=== PATIENT | female | born 1935 | race Hispanic/Latino ===

== ENCOUNTER 2020-11-06 15:45 | Inpatient (IN) | payer MEDICARE ==
[~2020-11-06] VITALS: Ht 149.9 cm; Wt 57.2 kg
[2020-11-06] MEDS ORDERED: CEFEPIME 1GM/NS 0.9% 50 ML 50 ML IV STA (16:01)
[2020-11-06] MEDS ORDERED: ASPIRIN 81 MG CHEW TAB PO ONE (16:15)
[2020-11-06] MEDS ORDERED: VANCOMYCIN 1GM/NS 250 ML 250 ML IV ONE (17:00)
[2020-11-06 17:58] LABS: BASOPHILS # (AUTO) 0.1 (0.0-0.1); BASOPHILS % 0.7 % (0.0-1.0); EOSINOPHILS % 0.2 % (0.0-6.0); HEMATOCRIT 40.1 % (34.2-44.1); HEMOGLOBIN 12.2 g/dL (12.0-16.0); LYMPHOCYTES # (AUTO) 1.6 (1.0-3.2); LYMPHOCYTES % 20.1 % (18.0-39.1); MEAN CORPUSCULAR HEMOGLOBIN 26.4 pg (28-32); MEAN CORPUSCULAR HGB CONC 30.4 g/dL (31-35); MEAN CORPUSCULAR VOLUME 86.8 fL (81-99); MONOCYTES # (AUTO) 0.5 (0.2-0.8); MONOCYTES % 5.9 % (4.4-11.3); NEUTROPHILS # (AUTO) 5.9 (2.1-6.9); NEUTROPHILS % 72.6 % (38.7-80.0); PLATELET COUNT 346 x10e3/uL (140-360); RED BLOOD COUNT 4.62 x10e6/uL (3.6-5.1); RED CELL DISTRIBUTION WIDTH 15.7 % (11.7-14.4)
[2020-11-06 18:12] LABS: ALANINE AMINOTRANSFERASE 13 IU/L (0-55); ALBUMIN 4.1 g/dL (3.5-5.0); ALBUMIN/GLOBULIN RATIO 0.9 (0.8-2.0); ALKALINE PHOSPHATASE 86 IU/L (40-150); ANION GAP 20.5 mmol/L (8-16); BLOOD UREA NITROGEN 26 mg/dL (7-26); BUN/CREATININE RATIO 31 (6-25); CALCIUM 9.6 mg/dL (8.4-10.2); CARBON DIOXIDE 22 mmol/L (22-29); CHLORIDE 101 mmol/L (98-107); CREATINE KINASE 19 IU/L (29-168); CREATININE, SERUM 0.83 mg/dL (0.57-1.11); EST GLOMERULAR FILTRATION RATE > 60 ML/MIN (60-); GLUCOSE 147 mg/dL (74-118); POTASSIUM 4.5 mmol/L (3.5-5.1); SODIUM 139 mmol/L (136-145)
[2020-11-06] MEDS ORDERED: SODIUM CHLORIDE 0.9% 1000ML 1,000 ML IV SCH (18:30)
[2020-11-06] MEDS ORDERED: SODIUM CHLORIDE 0.9% 1000ML 1,000 ML ONE (18:44)
[2020-11-06] MEDS: SODIUM CHLORIDE 0.9% 1000ML 1,000 ML IV SCH (18:48)
[2020-11-06] MEDS: FENTANYL CITRATE/PF 100MCG/2 ML INJ IV PRN (19:50)
[2020-11-07] VITALS (23 sets, daily range): BP systolic 108–180; BP diastolic 35–96
[2020-11-07] MEDS: FENTANYL CITRATE/PF 100MCG/2 ML INJ IV PRN (01:10)
[2020-11-07 06:46] LABS: BASOPHILS % 0.6 % (0.0-1.0); EOSINOPHILS % 0.4 % (0.0-6.0); HEMATOCRIT 35.8 % (34.2-44.1); HEMOGLOBIN 10.8 g/dL (12.0-16.0); LYMPHOCYTES # (AUTO) 1.6 (1.0-3.2); LYMPHOCYTES % 22.5 % (18.0-39.1); MEAN CORPUSCULAR HEMOGLOBIN 26.2 pg (28-32); MEAN CORPUSCULAR HGB CONC 30.2 g/dL (31-35); MEAN CORPUSCULAR VOLUME 86.7 fL (81-99); MONOCYTES # (AUTO) 0.6 (0.2-0.8); MONOCYTES % 7.8 % (4.4-11.3); NEUTROPHILS # (AUTO) 4.8 (2.1-6.9); NEUTROPHILS % 68.1 % (38.7-80.0); PLATELET COUNT 286 x10e3/uL (140-360); RED BLOOD COUNT 4.13 x10e6/uL (3.6-5.1); RED CELL DISTRIBUTION WIDTH 15.6 % (11.7-14.4)
[2020-11-07 06:56] LABS: INR 1.01; PROTHROMBIN TIME 13.9 seconds (11.9-14.5)
[2020-11-07 06:57] LABS: PARTIAL THROMBOPLASTIN TIME 28.2 seconds (23.8-35.5)
[2020-11-07 07:08] LABS: ALANINE AMINOTRANSFERASE 10 IU/L (0-55); ALBUMIN 3.4 g/dL (3.5-5.0); ALBUMIN/GLOBULIN RATIO 0.9 (0.8-2.0); ALKALINE PHOSPHATASE 71 IU/L (40-150); ANION GAP 19.7 mmol/L (8-16); BLOOD UREA NITROGEN 23 mg/dL (7-26); BUN/CREATININE RATIO 34 (6-25); CALCIUM 8.8 mg/dL (8.4-10.2); CARBON DIOXIDE 20 mmol/L (22-29); CHLORIDE 105 mmol/L (98-107); CREATININE, SERUM 0.67 mg/dL (0.57-1.11); EST GLOMERULAR FILTRATION RATE > 60 ML/MIN (60-); GLUCOSE 114 mg/dL (74-118); POTASSIUM 4.7 mmol/L (3.5-5.1); SODIUM 140 mmol/L (136-145)
[2020-11-07 07:43] LABS: THYROID STIMULATING HORMONE 0.901 uIU/mL (0.350-4.940)
[2020-11-07] MEDS: ASPIRIN 81 MG CHEW TAB PO SCH ×2 (08:00→08:36)
[2020-11-07 08:46] LABS: FERRITIN 24.8 ng/mL (4.63-204.00)
[2020-11-07] MEDS: NEOMYCIN/POLYMYXIN/BACITRACIN 15 GM TUBE TOP SCH (10:20)
[2020-11-07] MEDS ORDERED: MIRTAZAPINE15 MG PO (13:28)
[2020-11-07] MEDS ORDERED: HALOPERIDOL1 MG PO (13:28)
[2020-11-07] MEDS ORDERED: NAMENDA5 MG PO (13:28)
[2020-11-07] MEDS ORDERED: SERTRALINE HCL100 MG PO (13:28)
[2020-11-07] MEDS ORDERED: DOXYCYCLINE HY100 MG PO (13:35)
[2020-11-07] MEDS ORDERED: LIPITOR20 MG PO (13:35)
[2020-11-07] MEDS ORDERED: JARDIANCE25 MG PO (13:35)
[2020-11-07] MEDS ORDERED: SODIUM CHLORIDE 0.9% 1000ML 1,000 ML ONE (14:17)
[2020-11-07] MEDS ORDERED: FENTANYL CITRATE/PF 100MCG/2 ML INJ ONE (14:17)
[2020-11-07] MEDS ORDERED: LIDOCAINE HCL 2% LOCAL 20 ML VIAL ONE (14:17)
[2020-11-07] MEDS ORDERED: MIDAZOLAM HCL 2 MG/2 ML VIAL ONE (14:17)
[2020-11-07] MEDS ORDERED: HEPARIN SOD/SOD CHLORIDE 2,000 ML ONE (14:17)
[2020-11-07] MEDS ORDERED: IOPAMIDOL 300MG/ML 100 ML INFUS..BTL IV ONE (14:17)
[2020-11-07] MEDS ORDERED: CLOPIDOGREL BISULFATE 75 MG TAB ONE (15:40)
[2020-11-07] MEDS ORDERED: ASPIRIN 325 MG TAB ONE (15:40)
[2020-11-07] MEDS ORDERED: DEXTROSE 50% SYRINGE 50 ML IV PRN (16:30)
[2020-11-07] MEDS: INSULIN LISPRO 100 UNIT/1 ML 3ML VIAL SQ SCH ×2 (16:30→21:00)
[2020-11-07] MEDS: SODIUM CHLORIDE 0.9% 1000ML 1,000 ML IV SCH (19:30)
[2020-11-07] MEDS ORDERED: MEMANTINE 10 MG TAB PO SCH (21:00)
[2020-11-07] MEDS: ATORVASTATIN 40 MG TAB PO SCH (21:26)
[2020-11-07] MEDS: HALOPERIDOL 1 MG TAB PO SCH (21:26)
[2020-11-07] MEDS: SERTRALINE HCL 100 MG TAB PO SCH (21:26)
[2020-11-07] MEDS: MIRTAZAPINE 15 MG TAB PO SCH (21:26)
[2020-11-08] VITALS (8 sets, daily range): BP systolic 125–151; BP diastolic 53–64
[2020-11-08] MEDS: INSULIN LISPRO 100 UNIT/1 ML 3ML VIAL SQ SCH ×4 (07:30→21:00)
[2020-11-08] MEDS ORDERED: ATORVASTATIN 20 MG TAB PO SCH (09:00)
[2020-11-08] MEDS: ASPIRIN 81 MG CHEW TAB PO SCH (09:28)
[2020-11-08] MEDS: CLOPIDOGREL BISULFATE 75 MG TAB PO SCH (09:28)
[2020-11-08] MEDS: NEOMYCIN/POLYMYXIN/BACITRACIN 15 GM TUBE TOP SCH (10:00)
[2020-11-08] MEDS: ACETAMINOPHEN 325 MG TAB PO PRN ×2 (15:30→21:24)
[2020-11-08] MEDS: SODIUM CHLORIDE 0.9% 1000ML 1,000 ML IV SCH (15:35)
[2020-11-08] MEDS: ATORVASTATIN 40 MG TAB PO SCH (21:23)
[2020-11-08] MEDS: SERTRALINE HCL 100 MG TAB PO SCH (21:23)
[2020-11-08] MEDS: MIRTAZAPINE 15 MG TAB PO SCH (21:23)
[2020-11-08] MEDS: HALOPERIDOL 1 MG TAB PO SCH (21:23)
[2020-11-08] MEDS: MEMANTINE 10 MG TAB PO SCH (21:23)
[2020-11-09] VITALS (8 sets, daily range): BP systolic 119–164; BP diastolic 42–64
[2020-11-09] MEDS: SODIUM CHLORIDE 0.9% 1000ML 1,000 ML IV SCH (06:46)
[2020-11-09] MEDS: INSULIN LISPRO 100 UNIT/1 ML 3ML VIAL SQ SCH ×4 (07:30→20:50)
[2020-11-09] MEDS: ASPIRIN 81 MG CHEW TAB PO SCH (09:00)
[2020-11-09] MEDS: MEMANTINE 10 MG TAB PO SCH ×2 (09:00→20:50)
[2020-11-09] MEDS: SITAGLIPTIN 100 MG TAB PO SCH (09:00)
[2020-11-09] MEDS: NEOMYCIN/POLYMYXIN/BACITRACIN 15 GM TUBE TOP SCH (09:00)
[2020-11-09] MEDS: CLOPIDOGREL BISULFATE 75 MG TAB PO SCH (09:00)
[2020-11-09] MEDS: JARDIANCE 25 MG PO SCH (09:00)
[2020-11-09] MEDS: ACETAMINOPHEN 325 MG TAB PO PRN ×2 (16:45→23:59)
[2020-11-09] MEDS: MIRTAZAPINE 15 MG TAB PO SCH (20:50)
[2020-11-09] MEDS: HALOPERIDOL 1 MG TAB PO SCH (20:50)
[2020-11-09] MEDS: SERTRALINE HCL 100 MG TAB PO SCH (20:50)
[2020-11-09] MEDS: ATORVASTATIN 40 MG TAB PO SCH (20:50)
[2020-11-10] VITALS: BP 176/70
[2020-11-10 04:00] VITALS: BP 164/64
[2020-11-10] MEDS: SODIUM CHLORIDE 0.9% 1000ML 1,000 ML IV SCH (05:55)
[2020-11-10] MEDS: INSULIN LISPRO 100 UNIT/1 ML 3ML VIAL SQ SCH ×3 (07:30→15:56)
[2020-11-10 08:00] VITALS: BP 166/68
[2020-11-10 08:01] VITALS: BP 166/68
[2020-11-10] MEDS: JARDIANCE 25 MG PO SCH (08:28)
[2020-11-10] MEDS: MEMANTINE 10 MG TAB PO SCH (08:28)
[2020-11-10] MEDS: CLOPIDOGREL BISULFATE 75 MG TAB PO SCH (08:28)
[2020-11-10] MEDS: ASPIRIN 81 MG CHEW TAB PO SCH (08:28)
[2020-11-10] MEDS: NEOMYCIN/POLYMYXIN/BACITRACIN 15 GM TUBE TOP SCH (08:28)
[2020-11-10] MEDS: SITAGLIPTIN 100 MG TAB PO SCH (08:28)
[2020-11-10] MEDS ORDERED: LOSARTAN POTASSIUM 100 MG TAB PO SCH (09:00)
[2020-11-10] MEDS ORDERED: LACTULOSE SYRUP 20 GM/30 ML UDC PO ONE (09:00)
[2020-11-10] MEDS: ACETAMINOPHEN 325 MG TAB PO PRN (11:37)
[2020-11-10 12:08] VITALS: BP 158/60
[2020-11-10] MEDS ORDERED: BISACODYL 10 MG SUPP PR ONE ×2 (14:15→15:30)
[2020-11-10 16:10] VITALS: BP 151/58
== END 2020-11-10 20:40 | disposition home health service (06) | DRG 254 ==
LOC: ER 15:50 → ERHOLD 19:43 → MED/SURG3 23:48
PROVIDERS: ADMIT Internal Medicine; ATTEND Internal Medicine
PROC: 047P3D1 Dilation of Right Anterior Tibial Artery with Intraluminal Device, using Drug-Coated Balloon, Percutaneous Approach (ICD-10-PCS; principal; 2020-11-07)
PROC: B41D1ZZ Fluoroscopy of Aorta and Bilateral Lower Extremity Arteries using Low Osmolar Contrast (ICD-10-PCS; 2020-11-07)
DX: E11.52 Type 2 diabetes mellitus with diabetic peripheral angiopathy with gangrene (principal); E11.621 Type 2 diabetes mellitus with foot ulcer; I10 Essential (primary) hypertension; E78.5 Hyperlipidemia, unspecified; F03.90 Unspecified dementia, unspecified severity, without behavioral disturbance, psychotic disturbance, mood disturbance, and anxiety; I99.8 Other disorder of circulatory system; Z74.09 Other reduced mobility; E11.628 Type 2 diabetes mellitus with other skin complications; E11.65 Type 2 diabetes mellitus with hyperglycemia; L03.031 Cellulitis of right toe; Z79.899 Other long term (current) drug therapy; Z20.822 Contact with and (suspected) exposure to COVID-19
CPT/HCPCS: 36247; 36415; 37228; 74018; 75630; 80053; 80061; 82550; 82553; 82728; 82948; 83036; 83540; 83605; 83880; 84443; 84466; 84484; 85025; 85610; 85730; 87040; 93005; 99152; 99153; 99284; C1766; C1769; C1887; J0692; J2001; J2250; J3010; J3370; J7030; Q9967; U0002

== ENCOUNTER 2020-12-02 17:15 | Emergency (ER) | payer MEDICARE ==
[~2020-12-02] VITALS: Ht 149.9 cm; Wt 57.2 kg
[~2020-12-02 17:15] MED LIST: DOXYCYCLINE HY100 MG PO; HALOPERIDOL1 MG PO; JARDIANCE25 MG PO; LIPITOR20 MG PO; MIRTAZAPINE15 MG PO; NAMENDA5 MG PO; SERTRALINE HCL100 MG PO
[2020-12-02 18:27] LABS: BASOPHILS # (AUTO) 0.1 (0.0-0.1); BASOPHILS % 0.9 % (0.0-1.0); EOSINOPHILS # (AUTO) 0.1 (0.0-0.4); EOSINOPHILS % 1.8 % (0.0-6.0); HEMATOCRIT 33.5 % (34.2-44.1); HEMOGLOBIN 10.3 g/dL (12.0-16.0); LYMPHOCYTES # (AUTO) 1.8 (1.0-3.2); LYMPHOCYTES % 22.3 % (18.0-39.1); MEAN CORPUSCULAR HEMOGLOBIN 26.8 pg (28-32); MEAN CORPUSCULAR HGB CONC 30.7 g/dL (31-35); MEAN CORPUSCULAR VOLUME 87.2 fL (81-99); MONOCYTES # (AUTO) 0.7 (0.2-0.8); MONOCYTES % 8.2 % (4.4-11.3); NEUTROPHILS # (AUTO) 5.3 (2.1-6.9); NEUTROPHILS % 66.5 % (38.7-80.0); PLATELET COUNT 296 x10e3/uL (140-360); RED BLOOD COUNT 3.84 x10e6/uL (3.6-5.1); RED CELL DISTRIBUTION WIDTH 15.1 % (11.7-14.4)
[2020-12-02 18:44] LABS: ALANINE AMINOTRANSFERASE 15 IU/L (0-55); ALBUMIN 3.7 g/dL (3.5-5.0); ALBUMIN/GLOBULIN RATIO 0.9 (0.8-2.0); ALKALINE PHOSPHATASE 105 IU/L (40-150); ANION GAP 15.2 mmol/L (8-16); BLOOD UREA NITROGEN 22 mg/dL (7-26); BUN/CREATININE RATIO 29 (6-25); CALCIUM 9.1 mg/dL (8.4-10.2); CARBON DIOXIDE 22 mmol/L (22-29); CHLORIDE 106 mmol/L (98-107); CREATINE KINASE 18 IU/L (29-168); CREATININE, SERUM 0.77 mg/dL (0.57-1.11); EST GLOMERULAR FILTRATION RATE > 60 ML/MIN (60-); GLUCOSE 233 mg/dL (74-118); POTASSIUM 4.2 mmol/L (3.5-5.1); SODIUM 139 mmol/L (136-145)
[2020-12-02 21:07] VITALS: BP 133/61
== END 2020-12-02 21:15 | disposition home or self-care (01) ==
LOC: ER 17:21
DX: R23.3 Spontaneous ecchymoses (principal); M79.605 Pain in left leg; M79.604 Pain in right leg; Z79.01 Long term (current) use of anticoagulants; I10 Essential (primary) hypertension; E11.65 Type 2 diabetes mellitus with hyperglycemia; E78.5 Hyperlipidemia, unspecified; I25.10 Atherosclerotic heart disease of native coronary artery without angina pectoris; I25.2 Old myocardial infarction
CPT/HCPCS: 36415; 80053; 82550; 82553; 83605; 84484; 85025; 87040; 93926; 93971; 99283

== ENCOUNTER 2021-02-10 13:00 | Emergency (ER) | payer MEDICARE ==
[~2021-02-10] VITALS: Ht 149.9 cm; Wt 57.2 kg
[2021-02-10] MEDS ORDERED: CLEOCIN HCL300 MG PO (13:33)
== END 2021-02-10 14:50 | disposition home or self-care (01) ==
LOC: ER 14:39
DX: H00.015 Hordeolum externum left lower eyelid (principal); R23.3 Spontaneous ecchymoses; I10 Essential (primary) hypertension; E11.9 Type 2 diabetes mellitus without complications; E78.5 Hyperlipidemia, unspecified; I25.10 Atherosclerotic heart disease of native coronary artery without angina pectoris; I25.2 Old myocardial infarction
CPT/HCPCS: 99282

== ENCOUNTER 2021-04-30 14:35 | Inpatient (IN) | payer MEDICARE ==
[~2021-04-30] VITALS: Ht 144.8 cm; Wt 57.2 kg
[~2021-04-30 14:35] MED LIST changes: +CLEOCIN HCL300 MG PO
[2021-04-30 15:24] LABS: BASOPHILS # (AUTO) 0.1 (0.0-0.1); BASOPHILS % 0.7 % (0.0-1.0); EOSINOPHILS # (AUTO) 0.1 (0.0-0.4); EOSINOPHILS % 1.3 % (0.0-6.0); HEMOGLOBIN 10.1 g/dL (12.0-16.0); LYMPHOCYTES # (AUTO) 1.6 (1.0-3.2); LYMPHOCYTES % 18.2 % (18.0-39.1); MEAN CORPUSCULAR HEMOGLOBIN 24.3 pg (28-32); MEAN CORPUSCULAR HGB CONC 29.7 g/dL (31-35); MEAN CORPUSCULAR VOLUME 81.9 fL (81-99); MONOCYTES # (AUTO) 0.8 (0.2-0.8); NEUTROPHILS # (AUTO) 6.1 (2.1-6.9); NEUTROPHILS % 70.3 % (38.7-80.0); PLATELET COUNT 311 x10e3/uL (140-360); RED BLOOD COUNT 4.15 x10e6/uL (3.6-5.1); RED CELL DISTRIBUTION WIDTH 15.9 % (11.7-14.4)
[2021-04-30 15:48] LABS: ALBUMIN 3.4 g/dL (3.5-5.0); ALBUMIN/GLOBULIN RATIO 0.9 (0.8-2.0); ANION GAP 14.2 mmol/L (8-16); CALCIUM 8.7 mg/dL (8.4-10.2); CREATININE, SERUM 0.73 mg/dL (0.57-1.11); POTASSIUM 4.2 mmol/L (3.5-5.1)
[2021-04-30 22:00] VITALS: BP_SYST 147; BP_DIAS 28; BP_DIAS 58
[2021-05-01] VITALS (7 sets, daily range): BP systolic 119–189; BP diastolic 46–78
[2021-05-01] MEDS ORDERED: ONDANSETRON HCL INJ 2MG/ML 2ML 2 MG/ML VIAL IV PRN (01:00)
[2021-05-01] MEDS ORDERED: LIDOCAINE 4% PATCH TP PRN (01:00)
[2021-05-01] MEDS ORDERED: ALBUTEROL/IPRATROPIUM 3 ML NEB NEB PRN (01:00)
[2021-05-01] MEDS ORDERED: HYDROCODONE/APAP 5MG-325MG TAB PO PRN (01:00)
[2021-05-01] MEDS ORDERED: DEXTROSE 50% SYRINGE 50 ML IV PRN ×2 (01:00)
[2021-05-01] MEDS ORDERED: MELATONIN 5 MG TABLET PO PRN (01:00)
[2021-05-01] MEDS ORDERED: BENZONATATE 100 MG CAP PO PRN (01:00)
[2021-05-01] MEDS ORDERED: DOCUSATE SODIUM 100 MG CAP PO PRN (01:00)
[2021-05-01] MEDS ORDERED: POTASSIUM CHLORIDE 20 MEQ TAB CR PO PRN (01:00)
[2021-05-01] MEDS ORDERED: ACETAMINOPHEN 325 MG TAB PO PRN (01:00)
[2021-05-01] MEDS ORDERED: DIPHENHYDRAMINE HCL 25 MG CAP PO PRN (01:00)
[2021-05-01 01:28] LABS: CREATINE KINASE MB 0.7 ng/mL (0-5.0)
[2021-05-01 05:02] LABS: BASOPHILS # (AUTO) 0.1 (0.0-0.1); BASOPHILS % 0.8 % (0.0-1.0); EOSINOPHILS # (AUTO) 0.2 (0.0-0.4); EOSINOPHILS % 2.4 % (0.0-6.0); HEMATOCRIT 31.3 % (34.2-44.1); HEMOGLOBIN 9.6 g/dL (12.0-16.0); LYMPHOCYTES # (AUTO) 1.5 (1.0-3.2); LYMPHOCYTES % 24.2 % (18.0-39.1); MEAN CORPUSCULAR HEMOGLOBIN 24.9 pg (28-32); MEAN CORPUSCULAR HGB CONC 30.7 g/dL (31-35); MEAN CORPUSCULAR VOLUME 81.3 fL (81-99); MONOCYTES # (AUTO) 0.6 (0.2-0.8); MONOCYTES % 9.5 % (4.4-11.3); NEUTROPHILS # (AUTO) 3.9 (2.1-6.9); NEUTROPHILS % 62.8 % (38.7-80.0); PLATELET COUNT 260 x10e3/uL (140-360); RED BLOOD COUNT 3.85 x10e6/uL (3.6-5.1); RED CELL DISTRIBUTION WIDTH 15.9 % (11.7-14.4)
[2021-05-01] MEDS ORDERED: CLOPIDOGREL75 MG PO (05:11)
[2021-05-01] MEDS ORDERED: JANUVIA100 MG PO (05:11)
[2021-05-01 05:29] LABS: ANION GAP 13.2 mmol/L (8-16); CALCIUM 8.6 mg/dL (8.4-10.2); CREATININE, SERUM 0.6 mg/dL (0.57-1.11); POTASSIUM 4.2 mmol/L (3.5-5.1)
[2021-05-01] MEDS: PANTOPRAZOLE SOD 40 MG TABEC PO SCH (08:50)
[2021-05-01] MEDS: ASPIRIN 81 MG ENTERIC COATED PO SCH (08:51)
[2021-05-01] MEDS: HYDRALAZINE HCL 20 MG/ML VIAL IV PRN (08:51)
[2021-05-01 10:22] LABS: CREATINE KINASE MB 0.6 ng/mL (0-5.0)
[2021-05-01] MEDS: CLOPIDOGREL BISULFATE 75 MG TAB PO SCH (12:31)
[2021-05-01 14:43] LABS: CREATINE KINASE MB 0.6 ng/mL (0-5.0)
[2021-05-01] MEDS: ENOXAPARIN SOD INJ 40 MG/0.4 ML SYR SC SCH (17:07)
[2021-05-01] MEDS: INSULIN LISPRO 100 UNIT/1 ML 3ML VIAL SQ SCH ×2 (17:08→21:50)
[2021-05-01] MEDS: ATORVASTATIN 20 MG TAB PO SCH (21:55)
[2021-05-01] MEDS: HALOPERIDOL 1 MG TAB PO SCH (21:55)
[2021-05-01] MEDS: MEMANTINE 10 MG TAB PO SCH (21:55)
[2021-05-01] MEDS: SERTRALINE HCL 100 MG TAB PO SCH (21:55)
[2021-05-02] VITALS (9 sets, daily range): BP systolic 128–180; BP diastolic 41–81
[2021-05-02 05:03] LABS: BASOPHILS % 0.6 % (0.0-1.0); EOSINOPHILS # (AUTO) 0.1 (0.0-0.4); HEMATOCRIT 33.2 % (34.2-44.1); LYMPHOCYTES # (AUTO) 1.7 (1.0-3.2); LYMPHOCYTES % 26.3 % (18.0-39.1); MEAN CORPUSCULAR HEMOGLOBIN 24.4 pg (28-32); MEAN CORPUSCULAR HGB CONC 30.1 g/dL (31-35); MEAN CORPUSCULAR VOLUME 81.2 fL (81-99); MONOCYTES # (AUTO) 0.6 (0.2-0.8); MONOCYTES % 9.2 % (4.4-11.3); NEUTROPHILS # (AUTO) 3.9 (2.1-6.9); NEUTROPHILS % 61.6 % (38.7-80.0); PLATELET COUNT 272 x10e3/uL (140-360); RED BLOOD COUNT 4.09 x10e6/uL (3.6-5.1); RED CELL DISTRIBUTION WIDTH 16.2 % (11.7-14.4)
[2021-05-02 05:32] LABS: ANION GAP 12.9 mmol/L (8-16); CALCIUM 8.6 mg/dL (8.4-10.2); CHOL/HDL RATIO 3.7 (3.0-3.6); CREATININE, SERUM 0.77 mg/dL (0.57-1.11); MAGNESIUM 1.9 MG/DL (1.3-2.1); PHOSPHORUS 3.4 MG/DL (2.3-4.7); POTASSIUM 3.9 mmol/L (3.5-5.1)
[2021-05-02 05:52] LABS: THYROID STIMULATING HORMONE 1.433 uIU/mL (0.350-4.940)
[2021-05-02] MEDS ORDERED: METOPROLOL SUCCINATE 25 MG TAB XL PO SCH (09:00)
[2021-05-02] MEDS: ASPIRIN 81 MG ENTERIC COATED PO SCH (09:32)
[2021-05-02] MEDS: CLOPIDOGREL BISULFATE 75 MG TAB PO SCH (09:32)
[2021-05-02] MEDS: PANTOPRAZOLE SOD 40 MG TABEC PO SCH (09:32)
[2021-05-02] MEDS: HYDRALAZINE HCL 20 MG/ML VIAL IV PRN (09:32)
[2021-05-02] MEDS: INSULIN LISPRO 100 UNIT/1 ML 3ML VIAL SQ SCH ×4 (09:45→21:22)
[2021-05-02] MEDS: ENOXAPARIN SOD INJ 40 MG/0.4 ML SYR SC SCH (16:48)
[2021-05-02] MEDS: HALOPERIDOL 1 MG TAB PO SCH (21:20)
[2021-05-02] MEDS: ATORVASTATIN 20 MG TAB PO SCH (21:20)
[2021-05-02] MEDS: MEMANTINE 10 MG TAB PO SCH (21:21)
[2021-05-02] MEDS: AMLODIPINE BESYLATE 5 MG TAB PO SCH (21:21)
[2021-05-02] MEDS: SERTRALINE HCL 100 MG TAB PO SCH (21:21)
[2021-05-03] VITALS (8 sets, daily range): BP systolic 119–155; BP diastolic 45–87
[2021-05-03] MEDS: ASPIRIN 81 MG ENTERIC COATED PO SCH (09:33)
[2021-05-03] MEDS: CLOPIDOGREL BISULFATE 75 MG TAB PO SCH (09:33)
[2021-05-03] MEDS: INSULIN LISPRO 100 UNIT/1 ML 3ML VIAL SQ SCH ×4 (09:33→20:21)
[2021-05-03] MEDS: PANTOPRAZOLE SOD 40 MG TABEC PO SCH (09:33)
[2021-05-03] MEDS: METOPROLOL SUCCINATE 25 MG TAB XL PO SCH (09:34)
[2021-05-03] MEDS: ENOXAPARIN SOD INJ 40 MG/0.4 ML SYR SC SCH (17:05)
[2021-05-03] MEDS: HALOPERIDOL 1 MG TAB PO SCH (21:03)
[2021-05-03] MEDS: ATORVASTATIN 20 MG TAB PO SCH (21:03)
[2021-05-03] MEDS: SERTRALINE HCL 100 MG TAB PO SCH (21:03)
[2021-05-03] MEDS: AMLODIPINE BESYLATE 5 MG TAB PO SCH (21:03)
[2021-05-03] MEDS: MEMANTINE 10 MG TAB PO SCH (21:03)
[2021-05-04] VITALS: BP 165/51
[2021-05-04 04:00] VITALS: BP 167/69
[2021-05-04] MEDS: INSULIN LISPRO 100 UNIT/1 ML 3ML VIAL SQ SCH ×3 (07:51→15:48)
[2021-05-04 07:56] VITALS: BP 140/72
[2021-05-04] MEDS: METOPROLOL SUCCINATE 25 MG TAB XL PO SCH (08:01)
[2021-05-04] MEDS: PANTOPRAZOLE SOD 40 MG TABEC PO SCH (08:01)
[2021-05-04] MEDS: CLOPIDOGREL BISULFATE 75 MG TAB PO SCH (08:01)
[2021-05-04] MEDS: ASPIRIN 81 MG ENTERIC COATED PO SCH (08:01)
[2021-05-04 11:29] VITALS: BP 150/59
[2021-05-04] MEDS ORDERED: ONDANSETRON HCL 4 MG ORAL DISINTEGRATING TAB PO PRN (13:15)
[2021-05-04 15:22] VITALS: BP 150/59
[2021-05-04 15:40] VITALS: BP 120/59
[2021-05-04] MEDS ORDERED: METOPROLOL SUCC25 MG PO (16:41)
[2021-05-05] MEDS ORDERED: BALSAM PERU/CASTOR OIL 60 GM OINT...G. TP SCH (09:00)
== END 2021-05-04 17:40 | disposition home or self-care (01) | DRG 313 ==
LOC: ER 14:52 → ERHOLD 19:06 → MED/SURG 22:56 → OBSVTOIN 05-02 12:11
PROVIDERS: ADMIT Internal Medicine; ATTEND Internal Medicine
DX: R07.89 Other chest pain (principal); I27.0 Primary pulmonary hypertension; G30.9 Alzheimer's disease, unspecified; F02.80 Dementia in other diseases classified elsewhere, unspecified severity, without behavioral disturbance, psychotic disturbance, mood disturbance, and anxiety; Z74.01 Bed confinement status; K44.9 Diaphragmatic hernia without obstruction or gangrene; E11.51 Type 2 diabetes mellitus with diabetic peripheral angiopathy without gangrene; Z79.899 Other long term (current) drug therapy; I08.3 Combined rheumatic disorders of mitral, aortic and tricuspid valves; D64.9 Anemia, unspecified; I65.23 Occlusion and stenosis of bilateral carotid arteries; Z20.822 Contact with and (suspected) exposure to COVID-19
CPT/HCPCS: 36415; 71045; 74230; 80048; 80053; 80061; 82550; 82553; 82948; 83036; 83735; 83880; 84100; 84443; 84484; 85025; 93005; 93306; 93880; 96372; 99251; 99284; G0378; J0360; J1650; U0002

== ENCOUNTER 2021-08-12 13:22 | Inpatient (IN) | payer MEDICARE ==
[~2021-08-12] VITALS: Ht 139.7 cm; Wt 57.2 kg
[~2021-08-12 13:22] MED LIST changes: +CLOPIDOGREL75 MG PO; +JANUVIA100 MG PO; +METOPROLOL SUCC25 MG PO
[2021-08-12 14:31] LABS: BASOPHILS % 0.4 % (0.0-1.0); EOSINOPHILS # (AUTO) 0.1 (0.0-0.4); EOSINOPHILS % 0.6 % (0.0-6.0); HEMATOCRIT 38.3 % (34.2-44.1); HEMOGLOBIN 11.5 g/dL (12.0-16.0); LYMPHOCYTES # (AUTO) 1.4 (1.0-3.2); LYMPHOCYTES % 14.5 % (18.0-39.1); MEAN CORPUSCULAR HEMOGLOBIN 23.5 pg (28-32); MEAN CORPUSCULAR VOLUME 78.3 fL (81-99); MONOCYTES # (AUTO) 0.5 (0.2-0.8); MONOCYTES % 5.5 % (4.4-11.3); NEUTROPHILS # (AUTO) 7.3 (2.1-6.9); NEUTROPHILS % 78.7 % (38.7-80.0); PLATELET COUNT 236 x10e3/uL (140-360); RED BLOOD COUNT 4.89 x10e6/uL (3.6-5.1); RED CELL DISTRIBUTION WIDTH 16.1 % (11.7-14.4)
[2021-08-12 14:39] LABS: CLARITY,URINE TURBID (CLEAR); COLOR,URINE YELLOW (YELLOW); KETONES,URINE 1+ (NEGATIVE); LEUKOCYTE ESTERASE ,URINE SMALL (NEGATIVE); NITRITE,URINE NEGATIVE (NEGATIVE); PROTEIN,URINE DIPSTICK >=300 (NEGATIVE); URINE UROBILINOGEN 0.2 mg/dL (0.2 - 1)
[2021-08-12 14:49] LABS: BACTERIA,URINE FEW /HPF; EPITHELIAL CELLS,URINE RARE /LPF; WBC,URINE (MAN) 21-50 /HPF (0-5)
[2021-08-12 14:53] LABS: INR 0.88; PROTHROMBIN TIME 12.6 seconds (11.9-14.5)
[2021-08-12 14:54] LABS: PARTIAL THROMBOPLASTIN TIME 20.7 seconds (23.8-35.5)
[2021-08-12 14:55] LABS: ALANINE AMINOTRANSFERASE < 6 IU/L (0-55); ALKALINE PHOSPHATASE 102 IU/L (40-150); BLOOD UREA NITROGEN 20 mg/dL (7-26); BUN/CREATININE RATIO 20 (6-25); CALCIUM 9.8 mg/dL (8.4-10.2); CARBON DIOXIDE 24 mmol/L (22-29); CREATINE KINASE 24 IU/L (29-168); EST GLOMERULAR FILTRATION RATE 53 ML/MIN (60-); GLUCOSE 391 mg/dL (74-118); MAGNESIUM 1.5 MG/DL (1.3-2.1)
[2021-08-12 15:07] LABS: ANION GAP 19.2 mmol/L (8-16); CHLORIDE 103 mmol/L (98-107); POTASSIUM 4.2 mmol/L (3.5-5.1); SODIUM 140 mmol/L (136-145)
[2021-08-12] MEDS: MEROPENEM 1 GM in SODIUM CHLORIDE 0.9% 100 ML IV SCH ×2 (15:49→22:00)
[2021-08-12] MEDS ORDERED: ONDANSETRON HCL INJ 2MG/ML 2ML 2 MG/ML VIAL IV PRN (16:00)
[2021-08-12] MEDS: SODIUM CHLORIDE 0.9% 1000ML 1,000 ML IV SCH (16:00)
[2021-08-12] MEDS ORDERED: DEXTROSE 50% SYRINGE 50 ML IV PRN (16:00)
[2021-08-12] MEDS: INSULIN LISPRO 100 UNIT/1 ML 3ML VIAL SQ SCH ×2 (16:47→21:00)
[2021-08-12] MEDS: QUETIAPINE FUMARATE 25 MG TAB PO SCH (21:00)
[2021-08-12 21:39] VITALS: BP 92/72
[2021-08-12 22:00] VITALS: BP 92/72
[2021-08-13] VITALS (7 sets, daily range): BP systolic 117–182; BP diastolic 58–88
[2021-08-13 04:57] LABS: BASOPHILS % 0.7 % (0.0-1.0); EOSINOPHILS # (AUTO) 0.2 (0.0-0.4); EOSINOPHILS % 3.3 % (0.0-6.0); HEMATOCRIT 33.8 % (34.2-44.1); HEMOGLOBIN 10.1 g/dL (12.0-16.0); LYMPHOCYTES # (AUTO) 1.2 (1.0-3.2); LYMPHOCYTES % 19.9 % (18.0-39.1); MEAN CORPUSCULAR HEMOGLOBIN 23.4 pg (28-32); MEAN CORPUSCULAR HGB CONC 29.9 g/dL (31-35); MEAN CORPUSCULAR VOLUME 78.4 fL (81-99); MONOCYTES # (AUTO) 0.6 (0.2-0.8); MONOCYTES % 9.7 % (4.4-11.3); NEUTROPHILS % 66.1 % (38.7-80.0); PLATELET COUNT 214 x10e3/uL (140-360); RED BLOOD COUNT 4.31 x10e6/uL (3.6-5.1)
[2021-08-13] MEDS: SODIUM CHLORIDE 0.9% 1000ML 1,000 ML IV SCH ×2 (05:20→17:52)
[2021-08-13 05:30] LABS: ALANINE AMINOTRANSFERASE < 6 IU/L (0-55); ALBUMIN 3.3 g/dL (3.5-5.0); ALKALINE PHOSPHATASE 90 IU/L (40-150); ANION GAP 15.5 mmol/L (8-16); BLOOD UREA NITROGEN 16 mg/dL (7-26); BUN/CREATININE RATIO 21 (6-25); CALCIUM 8.6 mg/dL (8.4-10.2); CARBON DIOXIDE 24 mmol/L (22-29); CHLORIDE 108 mmol/L (98-107); CHOL/HDL RATIO 2.7 (3.0-3.6); CHOLESTEROL 141 MD/DL (0-199); CREATININE, SERUM 0.76 mg/dL (0.57-1.11); EST GLOMERULAR FILTRATION RATE 72 ML/MIN (60-); GLUCOSE 173 mg/dL (74-118); HDL CHOLESTEROL 53 MG/DL (40-60); LDL CHOLESTEROL 69 MG/DL (60-130); POTASSIUM 3.5 mmol/L (3.5-5.1); SODIUM 144 mmol/L (136-145); TRIGLYCERIDES 94 MG/DL (0-149)
[2021-08-13] MEDS: MEROPENEM 1 GM in SODIUM CHLORIDE 0.9% 100 ML IV SCH ×3 (05:45→21:05)
[2021-08-13] MEDS ORDERED: MEROPENEM 1 GM VIAL ONE (05:57)
[2021-08-13] MEDS ORDERED: SODIUM CHLORIDE 0.9% 100 ML ONE (06:13)
[2021-08-13 06:51] LABS: MAGNESIUM 1.4 MG/DL (1.3-2.1)
[2021-08-13 07:01] LABS: CREATINE KINASE MB 0.4 ng/mL (0-5.0)
[2021-08-13 07:20] LABS: FERRITIN 16.37 ng/mL (4.63-204.00); THYROID STIMULATING HORMONE 0.703 uIU/mL (0.350-4.940)
[2021-08-13] MEDS: INSULIN LISPRO 100 UNIT/1 ML 3ML VIAL SQ SCH ×4 (07:30→21:00)
[2021-08-13 13:24] LABS: CREATINE KINASE MB 0.5 ng/mL (0-5.0)
[2021-08-13] MEDS ORDERED: ONDANSETRON HCL 4 MG ORAL DISINTEGRATING TAB PO PRN (13:45)
[2021-08-13] MEDS: QUETIAPINE FUMARATE 25 MG TAB PO SCH (21:00)
[2021-08-14] VITALS (10 sets, daily range): BP systolic 158–225; BP diastolic 59–79
[2021-08-14] MEDS: MEROPENEM 1 GM in SODIUM CHLORIDE 0.9% 100 ML IV SCH ×3 (04:56→21:29)
[2021-08-14 05:00] LABS: BASOPHILS # (AUTO) 0.1 (0.0-0.1); BASOPHILS % 0.9 % (0.0-1.0); EOSINOPHILS # (AUTO) 0.3 (0.0-0.4); EOSINOPHILS % 3.8 % (0.0-6.0); HEMATOCRIT 36.7 % (34.2-44.1); HEMOGLOBIN 10.9 g/dL (12.0-16.0); LYMPHOCYTES # (AUTO) 1.8 (1.0-3.2); MEAN CORPUSCULAR HEMOGLOBIN 23.6 pg (28-32); MEAN CORPUSCULAR HGB CONC 29.7 g/dL (31-35); MEAN CORPUSCULAR VOLUME 79.4 fL (81-99); MONOCYTES # (AUTO) 0.6 (0.2-0.8); MONOCYTES % 8.4 % (4.4-11.3); NEUTROPHILS % 59.6 % (38.7-80.0); PLATELET COUNT 204 x10e3/uL (140-360); RED BLOOD COUNT 4.62 x10e6/uL (3.6-5.1); RED CELL DISTRIBUTION WIDTH 16.4 % (11.7-14.4)
[2021-08-14 05:13] LABS: ANION GAP 12.7 mmol/L (8-16); CALCIUM 8.9 mg/dL (8.4-10.2); CREATININE, SERUM 0.68 mg/dL (0.57-1.11); POTASSIUM 3.7 mmol/L (3.5-5.1)
[2021-08-14] MEDS ORDERED: HYDRALAZINE HCL 20 MG/ML VIAL IV PRN (07:00)
[2021-08-14] MEDS: SODIUM CHLORIDE 0.9% 1000ML 1,000 ML IV SCH ×2 (09:00→21:23)
[2021-08-14] MEDS: INSULIN LISPRO 100 UNIT/1 ML 3ML VIAL SQ SCH ×4 (09:14→20:13)
[2021-08-14] MEDS ORDERED: LORAZEPAM 0.5 MG TAB PO ONE (10:30)
[2021-08-14] MEDS: METOPROLOL SUCCINATE 25 MG TAB XL PO SCH (10:37)
[2021-08-14] MEDS: LOSARTAN POTASSIUM 25 MG TAB PO SCH (10:37)
[2021-08-14] MEDS: COLLAGENASE 5 GM TUBE TOP SCH (10:38)
[2021-08-14] MEDS: IRON SUCROSE 100 MG in SODIUM CHLORIDE 0.9% 100 ML 100 ML IV SCH (11:33)
[2021-08-14] MEDS ORDERED: LOPERAMIDE HCL 2 MG CAP PO ONE (12:30)
[2021-08-14] MEDS: HALOPERIDOL 1 MG TAB PO SCH (20:08)
[2021-08-14] MEDS: MIRTAZAPINE 15 MG TAB PO SCH (20:08)
[2021-08-14] MEDS: SERTRALINE HCL 100 MG TAB PO SCH (20:08)
[2021-08-14] MEDS: MEMANTINE 10 MG TAB PO SCH (20:08)
[2021-08-14] MEDS: HYDRALAZINE HCL 20 MG/ML VIAL IV PRN (20:23)
[2021-08-14] MEDS ORDERED: SODIUM CHLORIDE 0.9% 100 ML ONE (21:38)
[2021-08-15] VITALS (8 sets, daily range): BP systolic 118–169; BP diastolic 50–66
[2021-08-15] MEDS: MEROPENEM 1 GM in SODIUM CHLORIDE 0.9% 100 ML IV SCH (04:46)
[2021-08-15 05:03] LABS: BASOPHILS % 0.2 % (0.0-1.0); EOSINOPHILS % 0.1 % (0.0-6.0); HEMATOCRIT 38.3 % (34.2-44.1); HEMOGLOBIN 11.5 g/dL (12.0-16.0); LYMPHOCYTES # (AUTO) 1.2 (1.0-3.2); LYMPHOCYTES % 9.3 % (18.0-39.1); MEAN CORPUSCULAR HEMOGLOBIN 23.4 pg (28-32); MEAN CORPUSCULAR VOLUME 77.8 fL (81-99); MONOCYTES # (AUTO) 1.1 (0.2-0.8); MONOCYTES % 8.3 % (4.4-11.3); NEUTROPHILS # (AUTO) 10.6 (2.1-6.9); NEUTROPHILS % 81.4 % (38.7-80.0); PLATELET COUNT 236 x10e3/uL (140-360); RED BLOOD COUNT 4.92 x10e6/uL (3.6-5.1); RED CELL DISTRIBUTION WIDTH 16.6 % (11.7-14.4)
[2021-08-15 05:27] LABS: ALBUMIN 3.4 g/dL (3.5-5.0); ALBUMIN/GLOBULIN RATIO 0.9 (0.8-2.0); ANION GAP 17.4 mmol/L (8-16); CALCIUM 8.9 mg/dL (8.4-10.2); CREATININE, SERUM 0.95 mg/dL (0.57-1.11); MAGNESIUM 1.4 MG/DL (1.3-2.1); POTASSIUM 3.4 mmol/L (3.5-5.1)
[2021-08-15] MEDS: INSULIN LISPRO 100 UNIT/1 ML 3ML VIAL SQ SCH ×4 (07:30→21:00)
[2021-08-15] MEDS: SITAGLIPTIN 100 MG TAB PO SCH (09:00)
[2021-08-15] MEDS: LOSARTAN POTASSIUM 25 MG TAB PO SCH (09:00)
[2021-08-15] MEDS: COLLAGENASE 5 GM TUBE TOP SCH (09:00)
[2021-08-15] MEDS: CLOPIDOGREL BISULFATE 75 MG TAB PO SCH (09:00)
[2021-08-15] MEDS: METOPROLOL SUCCINATE 25 MG TAB XL PO SCH (09:00)
[2021-08-15] MEDS: ATORVASTATIN 40 MG TAB PO SCH (09:00)
[2021-08-15] MEDS ORDERED: METOPROLOL SUCCINATE 25 MG TAB XL PO SCH (09:00)
[2021-08-15] MEDS ORDERED: POTASSIUM CHLORIDE 20 MEQ TAB CR PO ONE (10:56)
[2021-08-15] MEDS ORDERED: MAGNESIUM SULFATE 2GM/50ML 50 ML IV ONE (11:00)
[2021-08-15] MEDS: AZTREONAM 1 GM/NS 50 ML 50 ML IV SCH ×2 (13:03→22:09)
[2021-08-15] MEDS: IRON SUCROSE 100 MG in SODIUM CHLORIDE 0.9% 100 ML 100 ML IV SCH (14:52)
[2021-08-15] MEDS: ACETAMINOPHEN 325 MG TAB PO PRN (18:51)
[2021-08-15] MEDS: HALOPERIDOL 1 MG TAB PO SCH (21:04)
[2021-08-15] MEDS: MIRTAZAPINE 15 MG TAB PO SCH (21:04)
[2021-08-15] MEDS: SERTRALINE HCL 100 MG TAB PO SCH (21:04)
[2021-08-15] MEDS: MEMANTINE 10 MG TAB PO SCH (21:04)
[2021-08-16] VITALS (8 sets, daily range): BP systolic 128–162; BP diastolic 43–74
[2021-08-16] MEDS: INSULIN LISPRO 100 UNIT/1 ML 3ML VIAL SQ SCH ×4 (07:30→21:00)
[2021-08-16] MEDS: SITAGLIPTIN 100 MG TAB PO SCH (08:38)
[2021-08-16] MEDS: ATORVASTATIN 40 MG TAB PO SCH (08:38)
[2021-08-16] MEDS: LOSARTAN POTASSIUM 25 MG TAB PO SCH (08:38)
[2021-08-16] MEDS: CLOPIDOGREL BISULFATE 75 MG TAB PO SCH (08:38)
[2021-08-16] MEDS: METOPROLOL SUCCINATE 25 MG TAB XL PO SCH (08:39)
[2021-08-16] MEDS: COLLAGENASE 5 GM TUBE TOP SCH (08:39)
[2021-08-16] MEDS ORDERED: METRONIDAZOLE 500MG/NS 100ML 100 ML IV SCH (09:45)
[2021-08-16] MEDS: APIXAB 2.5 MG TABLET PO SCH ×2 (10:27→16:39)
[2021-08-16] MEDS: MEGESTROL ACETATE 40 MG TAB PO SCH ×2 (10:27→16:39)
[2021-08-16] MEDS: CLINDAMYCIN 300MG 50 ML IV SCH ×2 (11:27→16:39)
[2021-08-16] MEDS: ACETAMINOPHEN 325 MG TAB PO PRN (12:44)
[2021-08-16] MEDS: AZTREONAM 1 GM/NS 50 ML 50 ML IV SCH ×2 (12:57→23:50)
[2021-08-16] MEDS: MEMANTINE 10 MG TAB PO SCH (16:39)
[2021-08-16] MEDS ORDERED: QUETIAPINE FUMARATE 25 MG TAB PO SCH (21:00)
[2021-08-16] MEDS ORDERED: ATORVASTATIN 40 MG TAB PO SCH (21:00)
[2021-08-16] MEDS: MIRTAZAPINE 15 MG TAB PO SCH (21:31)
[2021-08-17] VITALS (9 sets, daily range): BP systolic 111–158; BP diastolic 43–69
[2021-08-17] MEDS: CLINDAMYCIN 300MG 50 ML IV SCH ×3 (00:33→17:30)
[2021-08-17] MEDS: MEGESTROL ACETATE 40 MG TAB PO SCH ×2 (08:15→17:30)
[2021-08-17] MEDS: APIXAB 2.5 MG TABLET PO SCH ×2 (08:15→17:30)
[2021-08-17] MEDS: INSULIN LISPRO 100 UNIT/1 ML 3ML VIAL SQ SCH ×5 (08:15→21:00)
[2021-08-17] MEDS: MEMANTINE 10 MG TAB PO SCH ×2 (08:15→17:30)
[2021-08-17] MEDS: LOSARTAN POTASSIUM 25 MG TAB PO SCH (08:15)
[2021-08-17] MEDS: SITAGLIPTIN 100 MG TAB PO SCH (08:15)
[2021-08-17] MEDS ORDERED: METOPROLOL SUCCINATE 25 MG TAB XL PO SCH (09:00)
[2021-08-17] MEDS ORDERED: FUROSEMIDE INJ 10 MG/ML 4 ML VIAL IV ONE (09:45)
[2021-08-17] MEDS ORDERED: POTASSIUM CHLORIDE 20 MEQ TAB CR PO ONE (09:45)
[2021-08-17 09:57] LABS: BASOPHILS % 0.3 % (0.0-1.0); EOSINOPHILS # (AUTO) 0.1 (0.0-0.4); EOSINOPHILS % 0.6 % (0.0-6.0); HEMATOCRIT 34.3 % (34.2-44.1); HEMOGLOBIN 10.6 g/dL (12.0-16.0); LYMPHOCYTES # (AUTO) 0.8 (1.0-3.2); LYMPHOCYTES % 6.3 % (18.0-39.1); MEAN CORPUSCULAR HEMOGLOBIN 23.9 pg (28-32); MEAN CORPUSCULAR HGB CONC 30.9 g/dL (31-35); MEAN CORPUSCULAR VOLUME 77.3 fL (81-99); MONOCYTES # (AUTO) 0.8 (0.2-0.8); MONOCYTES % 6.2 % (4.4-11.3); NEUTROPHILS # (AUTO) 11.3 (2.1-6.9); NEUTROPHILS % 84.9 % (38.7-80.0); PLATELET COUNT 222 x10e3/uL (140-360); RED BLOOD COUNT 4.44 x10e6/uL (3.6-5.1); RED CELL DISTRIBUTION WIDTH 16.9 % (11.7-14.4)
[2021-08-17] MEDS: AZTREONAM 1 GM/NS 50 ML 50 ML IV SCH ×2 (10:10→23:42)
[2021-08-17 10:41] LABS: ANION GAP 13.6 mmol/L (8-16); CALCIUM 8.9 mg/dL (8.4-10.2); CREATININE, SERUM 1.01 mg/dL (0.57-1.11); POTASSIUM 3.6 mmol/L (3.5-5.1)
[2021-08-17] MEDS: COLLAGENASE 5 GM TUBE TOP SCH (16:19)
[2021-08-17] MEDS: QUETIAPINE FUMARATE 25 MG TAB PO SCH (21:57)
[2021-08-17] MEDS: MIRTAZAPINE 15 MG TAB PO SCH (21:57)
[2021-08-18] VITALS (8 sets, daily range): BP systolic 111–190; BP diastolic 44–74
[2021-08-18] MEDS: CLINDAMYCIN 300MG 50 ML IV SCH ×2 (01:12→09:45)
[2021-08-18] MEDS: HYDRALAZINE HCL 20 MG/ML VIAL IV PRN (04:12)
[2021-08-18 05:16] LABS: ANION GAP 15.9 mmol/L (8-16); CREATININE, SERUM 1.15 mg/dL (0.57-1.11); POTASSIUM 3.9 mmol/L (3.5-5.1)
[2021-08-18] MEDS: INSULIN LISPRO 100 UNIT/1 ML 3ML VIAL SQ SCH ×4 (08:00→20:15)
[2021-08-18] MEDS: MEGESTROL ACETATE 40 MG TAB PO SCH ×2 (10:07→17:04)
[2021-08-18] MEDS: POTASSIUM CHLORIDE 20 MEQ TAB CR PO SCH (10:07)
[2021-08-18] MEDS: FUROSEMIDE INJ 10 MG/ML 4 ML VIAL IV SCH (10:07)
[2021-08-18] MEDS: SITAGLIPTIN 100 MG TAB PO SCH (10:07)
[2021-08-18] MEDS: APIXAB 2.5 MG TABLET PO SCH ×2 (10:07→17:04)
[2021-08-18] MEDS: MEMANTINE 10 MG TAB PO SCH ×2 (10:07→17:04)
[2021-08-18] MEDS: AZTREONAM 1 GM/NS 50 ML 50 ML IV SCH ×2 (11:40→23:12)
[2021-08-18] MEDS: GLIPIZIDE 5 MG TAB PO SCH ×2 (11:40→17:03)
[2021-08-18] MEDS: COLLAGENASE 5 GM TUBE TOP SCH (17:03)
[2021-08-18] MEDS: METOPROLOL TARTRATE 50 MG TAB PO SCH (17:04)
[2021-08-18] MEDS: MIRTAZAPINE 15 MG TAB PO SCH (20:15)
[2021-08-18] MEDS: QUETIAPINE FUMARATE 25 MG TAB PO SCH (20:15)
[2021-08-18] MEDS ORDERED: SODIUM CHLORIDE 0.9% 250ML 250 ML ONE (23:11)
[2021-08-19] VITALS (9 sets, daily range): BP systolic 100–158; BP diastolic 29–63
[2021-08-19 05:01] LABS: BASOPHILS % 0.3 % (0.0-1.0); EOSINOPHILS # (AUTO) 0.2 (0.0-0.4); EOSINOPHILS % 2.1 % (0.0-6.0); HEMATOCRIT 35.1 % (34.2-44.1); HEMOGLOBIN 10.5 g/dL (12.0-16.0); LYMPHOCYTES # (AUTO) 1.3 (1.0-3.2); LYMPHOCYTES % 11.6 % (18.0-39.1); MEAN CORPUSCULAR HEMOGLOBIN 23.5 pg (28-32); MEAN CORPUSCULAR HGB CONC 29.9 g/dL (31-35); MEAN CORPUSCULAR VOLUME 78.5 fL (81-99); NEUTROPHILS # (AUTO) 8.4 (2.1-6.9); NEUTROPHILS % 76.5 % (38.7-80.0); PLATELET COUNT 247 x10e3/uL (140-360); RED BLOOD COUNT 4.47 x10e6/uL (3.6-5.1); RED CELL DISTRIBUTION WIDTH 17.5 % (11.7-14.4)
[2021-08-19 05:19] LABS: ANION GAP 16.4 mmol/L (8-16); CALCIUM 9.3 mg/dL (8.4-10.2); CREATININE, SERUM 1.13 mg/dL (0.57-1.11); POTASSIUM 4.4 mmol/L (3.5-5.1)
[2021-08-19] MEDS: INSULIN LISPRO 100 UNIT/1 ML 3ML VIAL SQ SCH ×4 (08:30→21:00)
[2021-08-19] MEDS: FUROSEMIDE INJ 10 MG/ML 4 ML VIAL IV SCH (08:58)
[2021-08-19] MEDS: SITAGLIPTIN 100 MG TAB PO SCH (08:58)
[2021-08-19] MEDS: POTASSIUM CHLORIDE 20 MEQ TAB CR PO SCH (08:58)
[2021-08-19] MEDS: GLIPIZIDE 5 MG TAB PO SCH ×2 (08:58→16:04)
[2021-08-19] MEDS: APIXAB 2.5 MG TABLET PO SCH ×2 (08:58→16:04)
[2021-08-19] MEDS: MEMANTINE 10 MG TAB PO SCH ×2 (08:59→16:04)
[2021-08-19] MEDS: MEGESTROL ACETATE 40 MG TAB PO SCH ×2 (08:59→16:04)
[2021-08-19] MEDS: METOPROLOL TARTRATE 50 MG TAB PO SCH ×2 (08:59→15:55)
[2021-08-19] MEDS: COLLAGENASE 5 GM TUBE TOP SCH (09:09)
[2021-08-19] MEDS: AZTREONAM 1 GM/NS 50 ML 50 ML IV SCH ×2 (10:57→23:00)
[2021-08-19] MEDS: QUETIAPINE FUMARATE 25 MG TAB PO SCH (21:00)
[2021-08-19] MEDS: MIRTAZAPINE 15 MG TAB PO SCH (21:00)
[2021-08-20] VITALS: BP 122/47
[2021-08-20 07:32] VITALS: BP 138/51
[2021-08-20 07:35] VITALS: BP 138/51
[2021-08-20] MEDS: GLIPIZIDE 5 MG TAB PO SCH (08:16)
[2021-08-20] MEDS: FUROSEMIDE INJ 10 MG/ML 4 ML VIAL IV SCH (08:17)
[2021-08-20] MEDS: POTASSIUM CHLORIDE 20 MEQ TAB CR PO SCH (08:17)
[2021-08-20] MEDS: SITAGLIPTIN 100 MG TAB PO SCH (08:17)
[2021-08-20] MEDS: APIXAB 2.5 MG TABLET PO SCH (08:17)
[2021-08-20] MEDS: MEGESTROL ACETATE 40 MG TAB PO SCH (08:18)
[2021-08-20] MEDS: MEMANTINE 10 MG TAB PO SCH (08:18)
[2021-08-20] MEDS: METOPROLOL TARTRATE 50 MG TAB PO SCH (08:18)
[2021-08-20] MEDS: INSULIN LISPRO 100 UNIT/1 ML 3ML VIAL SQ SCH ×2 (08:30→12:13)
[2021-08-20] MEDS: AZTREONAM 1 GM/NS 50 ML 50 ML IV SCH (09:59)
[2021-08-20] MEDS: COLLAGENASE 5 GM TUBE TOP SCH (09:59)
[2021-08-20 10:59] VITALS: BP 120/42
== END 2021-08-20 14:13 | disposition home or self-care (01) | DRG 689 ==
LOC: ER 13:33 → ERHOLD 15:59 → MED/SURG2 20:51
PROVIDERS: ADMIT Internal Medicine; ATTEND Internal Medicine
DX: N30.00 Acute cystitis without hematuria (principal); G92.8 Other toxic encephalopathy; I50.33 Acute on chronic diastolic (congestive) heart failure; G93.41 Metabolic encephalopathy; F05 Delirium due to known physiological condition; F02.81 Dementia in other diseases classified elsewhere, unspecified severity, with behavioral disturbance; G30.9 Alzheimer's disease, unspecified; I11.0 Hypertensive heart disease with heart failure; I25.10 Atherosclerotic heart disease of native coronary artery without angina pectoris; E11.51 Type 2 diabetes mellitus with diabetic peripheral angiopathy without gangrene; E11.65 Type 2 diabetes mellitus with hyperglycemia; S81.801A Unspecified open wound, right lower leg, initial encounter; R33.9 Retention of urine, unspecified; G25.1 Drug-induced tremor; T43.4X5A Adverse effect of butyrophenone and thiothixene neuroleptics, initial encounter; G89.29 Other chronic pain
CPT/HCPCS: 36415; 70450; 71045; 71250; 80048; 80053; 80061; 81001; 82140; 82550; 82553; 82607; 82728; 82746; 82948; 83036; 83540; 83735; 83880; 84443; 84466; 84484; 85025; 85045; 85610; 85730; 87040; 87086; 93005; 93306; 93970; 96361; 96372; 97139; 99251; 99284; J0360; J1756; J1940; J2185; J3475; J7030; J7050; Q0162; U0002